=== PATIENT | male | born 1960 | race Caucasian/White ===

== ENCOUNTER → 2018-08-11 | Outpatient (REF) | payer MEDICARE ==
[~2018-08-11] MED LIST: B-12100020 PO; CITA20TA6 PO; FERR325T3 PO; FOLI1TAB11 PO; FOLI800C PO; MULTCAP PO; PANT40TA3 PO; PHEN50CH4 PO; VITA100T12 PO
== END ==
LOC: M LAB LCGH 15:47
PROVIDERS: ATTEND Surgery
DX: C16.9 Malignant neoplasm of stomach, unspecified (principal); D50.9 Iron deficiency anemia, unspecified; R63.4 Abnormal weight loss; K62.5 Hemorrhage of anus and rectum

== ENCOUNTER → 2018-08-25 | Outpatient (CLI) | payer MEDICARE ==
[~2018-08-25] MED LIST changes: -B-12100020 PO; -FOLI1TAB11 PO; +GASTROGRAFIN SOLUTION 30ML (Q9963) As Ordered ONE; +ISOVUE-370 76% 100ML VIAL (Q9967) As Ordered ONE; +LIDOCAINE 1% MDV 20ML VIAL As Ordered ONE
--- NOTE | 2018-08-25 13:06 | REP ---
CT of the chest with IV contrast for initial staging of gastric adenocarcinoma: The patient indicates that he and additionally has a left nephrectomy and has had a colon resection. There are no comparison studies. There is a soft tissue mass in the posterior mediastinum anterior to the approximate T9-T10 vertebral bodies along the right lateral margin of the distal esophagus measuring 2.7 cm transversely by 4.0 cm craniocaudad. This could represent an enlarged node, or mass of other etiology. No other mediastinal mass or adenopathy are identified. However, I suspect there is circumferential wall thickening of the distal esophagus. There is no hilar adenopathy. There is no axillary adenopathy. There is a minimal volume of subcutaneous fat. There are no lung masses or nodules. There are no infiltrates or pleural effusions. The thoracic aorta is unremarkable. 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 Cardiac size is normal. There is no pericardial effusion. There are no lytic, blastic or destructive skeletal changes. Impression: There is a mass in the posterior inferior mediastinum as described. This could represent an enlarged node or mass of other etiology. I suspect there is circumferential wall thickening of the distal esophagus. No lung nodules or masses are identified. There are no infiltrates or pleural effusions. Electronically Signed by Jason Buckley MD 08/25/2018 12:58 P
--- NOTE | 2018-08-25 13:55 | REP ---
CT ABDOMEN AND PELVIS WITH IV AND ORAL CONTRAST: HISTORY: Gastric adenocarcinoma. Initial staging. The patient reports a previous partial gastrectomy, colon resection due to Crohn disease, as well as post-traumatic left nephrectomy and splenectomy. There are no comparison studies available. CT CONTRAST DOSE: 100 mL of intravenous Isovue 370. CT FINDINGS: There is considerable spray artifact in the left upper quadrant from surgical clips post splenectomy. There does appear to be some mural thickening of the distal esophagus and heterogeneous density is seen in the upper stomach. There appears to have been a gastrojejunostomy. The known tumor in the stomach is difficult to characterize by CT. No pancreatic lesion is observed. The gallbladder is unremarkable. There is a suture line in the right mid abdomen along the pancreatic head. No gallbladder abnormality is seen. No focal liver lesion is appreciated. There is mild fatty infiltration of the liver. No adrenal lesion is seen on either side. The right kidney enhances normally and appears morphologically intact. No periaortic adenopathy is appreciated. Distal small bowel and visualized large bowel loops are unremarkable. There is moderate colonic stool in the rectum. Dystrophic calcifications are seen in the prostate. Urinary bladder is intact. As reported on the chest CT, there is an oval-shaped low density lesion in the retrocrural soft tissues adjacent to the distal esophagus and to its right side. This measures 3.7 cm craniocaudal x 2.6 cm in medial to lateral x 2.4 cm right to left. This could be an esophageal duplication cyst, conceivably a pericardial cyst, or low density adenopathy. I would favor a cyst. IMPRESSION: Extensive postoperative changes in this patient who is status post splenectomy, left nephrectomy, and gastrojejunostomy. No definite adenopathy is seen. There is a low-density possibly cystic lesion to the right of the distal esophagus just above the diaphragmatic hiatus. Electronically Signed by Jorge Mujica MD 08/25/2018 05:19 P
== END ==
LOC: M RAD 08:21
PROVIDERS: ATTEND Internal Medicine Medical Oncology
DX: C16.9 Malignant neoplasm of stomach, unspecified (principal); Z90.81 Acquired absence of spleen; Z90.5 Acquired absence of kidney; Z93.4 Other artificial openings of gastrointestinal tract status
CPT/HCPCS: 71260; 74177; Q9963; Q9967

== ENCOUNTER 2018-08-28 08:43 | Outpatient (RCR) | payer MEDICARE ==
[2018-08-20 15:12] VITALS: BP 84/61
[2018-08-20 16:12] LABS: HEMATOCRIT 26.6 % (42.0-52.0); HEMOGLOBIN 8.1 g/dl (13.5-17.5); LYMPH % 18.6 % (24.0-44.0); MEAN CORPUSCULAR HEMOGLOBIN 25.3 pg (27.0-33.0); MEAN CORPUSCULAR HGB CONC 30.5 g/dl (32.0-36.5); MEAN CORPUSCULAR VOLUME 83.2 fl (80.0-96.0); NEUTROPHILS # 7.2 10^3/uL (1.8-7.7); NEUTROPHILS % 76.5 % (36.0-66.0); RED BLOOD COUNT 3.2 10^6/uL (4.30-6.10); WHITE BLOOD COUNT 9.4 10^3/uL (4.0-10.0)
--- NOTE | 2018-08-20 17:23 | MEDONC ---
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 HISTORY OF PRESENT ILLNESS: Steve Sanz is a 58-year-old man with a personal history of Crohn disease status post hospitalization for SBO requiring colectomy in June 2017, and recently admitted for progressive anemia, fatigue and weight loss, found on upper endoscopy to have diffuse gastric body involvement with adenocarcinoma, HER2/radha negative, signet ring morphology present involving primarily the lesser curvature with scope unable to pass beyond the mass. He was referred for surgical evaluation [place] with the surgeon felt he should have medical oncology evaluation initially and is now referred by Dr. Monzon for medical oncology recommendations. 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 As part of this he underwent splenectomy, left nephrectomy, multiple skeletal repairs and has seizure disorder but no recent seizures. He is closely cared for by a sister Christie Barksdale, cell number [phone], and brother Maikel Sanz, cell [phone], though he lives by himself. He smoked remotely, but denies alcohol. FAMILY HISTORY: Notable for colon cancer in mother who at age 62, lung cancer in father who was a smoker, and breast cancer in a sister in her 50s. In July Steve was hospitalized due to severe anemia. He received iron and red blood cell transfusions. On 08/11/2018 he underwent upper and lower endoscopy with Liborio Miller MD. Upper endoscopy revealed moderate to poorly differentiated adenocarcinoma with signet ring features, HER2/radha negative (1+) diffusely involving gastric body, mostly along the lesser curvature, with the scope unable to pass the tumor. Colonoscopy was unremarkable. Recently he developed thrombocytosis and iron deficiency leading up to these events. Steve acknowledges a significant weight loss in the last year. He is appetite is decreased. He is having occasional vomiting. He threw up blood last week. He is eating increasingly softer foods and not able to tolerate regular solids but is not a great historian. His sister and brother pitch in. He denies pain but expressed pain and tenderness during epigastric exam. PAST MEDICAL HISTORY: Crohn disease not on active treatment, anemia, anxiety, status post splenectomy, hyperlipidemia, iron deficiency anemia, seizure disorder thrombocytosis, urethral calculus. PAST SURGICAL HISTORY: Colectomy for SBO June 2017. Splenectomy 1974, left nephrectomy 1974, skull rib and left femur fractures with left femur ORIF 1974. ALLERGIES: Shrimp and red dye. MEDICATIONS: Citalopram 20 mg daily, cyanocobalamin 100 mcg daily, ferrous sulfate 325 mg daily, folic acid 0.8 mg daily, multivitamin daily, pantoprazole 40 mg, phenytoin 50 mg daily. SOCIAL HISTORY: The patient reports remote history of smoking and not taking in alcohol but other past medical records indicate social alcohol intake. He lives alone. Some was supervised by a brother Maikel and sister Christie noted above. 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 FAMILY HISTORY: Mother age 62 of colon cancer diagnosed at her at age of 60; father of lung cancer was a heavy smoker; sister living, diagnosed with breast cancer age 55. REVIEW OF SYSTEMS: 12 system written review positive for dizziness once in awhile, throwing up blood last week, fatigue, increased fatigue, loss of appetite and weight loss lately 20 pounds in the last year, prior history of alcohol intake now rare. PHYSICAL EXAMINATION: Weight 47 kg, height 5'1/4", BMI 20, the patient is a casually dressed, well-groomed middle-aged gentleman, makes good eye contact, cheerful, poor historian, accompanied by brother and sister easily gets on examining table for exam. Temperature 96.7, blood pressure 84/61, heart rate 75, respiratory 16, O2 sat 98%. Respiratory: Clear lungs to auscultation bilaterally anteriorly and posteriorly. No wheezes, rales or rhonchi. Cardiac: S1-S2 regular rate and rhythm. No murmur. No gallop. Abdomen: Some epigastric tenderness without palpable discrete mass. No hepatomegaly or splenomegaly (asplenic). No lower abdominal tenderness. No rebound tenderness. Extremities: No edema. Lymph nodes no palpable submandibular, cervical, supraclavicular or axillary adenopathy bilaterally. LABORATORY DATA: WBC 9.4, hemoglobin 8.1, hematocrit 26. MCV 83, platelets 885. IMPRESSION: 1. Steve Sanz is a 58-year-old man with newly diagnosed moderate to poorly differentiated gastric adenocarcinoma with signet ring features diffusely involving gastric body with partial outlet obstruction. 2. Personal history of Crohn disease. 3. Family history of colon cancer and breast cancer in first-degree relatives. I reviewed with Steve and his family standard workup of newly diagnosed gastric cancer. A critical issue is determining whether it is localized disease, resectable, and/or metastatic. First, CTs of chest, abdomen and pelvis. If there appear to be no distant metastases or surgically disqualifying bulky adenopathy would proceed to an endoscopic ultrasound and potentially PET. Though not of immediate import, pursuing genetic counseling and testing which may make sense with his family. Does not need immediate criteria for hereditary diffuse gastric cancer based on his age at diagnosis but notably, with breast cancer and colon cancer in first-degree relatives certainly a raises a question of possible presence of CDH1 gene or a variant or other GI malignancy germ line mutation, for example Salinas syndrome. I reviewed with Steve and his sister and brother that locally advanced gastric cancer and metastatic gastric cancer carry a very poor prognosis and can involve fairly aggressive treatment. PLAN: 1. CT chest and pelvis with by mouth and IV contrast as part of initial staging. 2. Return to clinic after CTs; If no evidence of distant disease or bulky distant adenopathy proceed to EUS for staging and consider PET. 3. Consider genetic counseling and testing for Salinas syndrome, and HBGC (CDH1 gene). 4. If metastatic disease present obtain MMR and PD-L1 status on current tissue. All of the patient's and his family's questions were answered today to their apparent satisfaction. I emphasized the potentially involved nature of staging gastric cancer, initial treatment. I also focused on nutrition. Emphasizing importance of soft high calorie food intake including boost and thick liquid diet to maintain weight. Steve was a very difficult IV stick today and may require MediPort access for treatment. If today's creatinine comes back elevated due to a prerenal azotemia. Will recommend significant IV hydration prior to any scans. Electronically Signed by Perla Carson MD 08/21/2018 03:23 P DD: Perla Carson MD 08/20/2018 04:19 P DT: [email or web address] 08/20/2018 04:51 P CC: Kenny Monzon MD
[2018-08-21 08:58] LABS: INR 1.15; PARTIAL THROMBOPLASTIN TIME 35.8 SECONDS (25.4-37.6); PROTHROMBIN TIME 14.9 SECONDS (12.1-14.4)
[~2018-08-28] VITALS: Ht 153 cm; Wt 47.2 kg
[~2018-08-28 08:43] MED LIST changes: -GASTROGRAFIN SOLUTION 30ML (Q9963) As Ordered ONE; -ISOVUE-370 76% 100ML VIAL (Q9967) As Ordered ONE; -LIDOCAINE 1% MDV 20ML VIAL As Ordered ONE
[2018-08-28 08:51] VITALS: BP 87/63
--- NOTE | 2018-08-29 14:18 | MEDONC ---
MEDICAL ONCOLOGY FOLLOWUP DATE OF SERVICE: 08/28/2018 DIAGNOSIS: 1. Moderately to poorly differentiated gastric adenocarcinoma, morphologically diffuse, signet ring morphology, HER2 negative diagnosed June 2017 on upper endoscopy during admission for severe anemia in the setting of major weight loss. Staging workup underway. 2. Family history of colon and breast cancer in first-degree relatives; personal history of Crohn's disease. INTERVAL HISTORY: CT chest, abdomen and pelvis revealed a soft tissue mass in the posterior mediastinum, anterior to T9-T10 vertebral bodies, along the right lateral margin of the distal esophagus, measuring 2.7 x 4.0 cm. It was thought either to be an enlarged node, mass or other etiology. No other mediastinal mass or adenopathy was seen in the chest and on abdomen pelvis CT, mural thickening in the distal esophagus and heterogeneous density in the upper stomach were seen. The known tumor in the stomach was difficult to characterize by CT. No pancreatic, gallbladder lesions seen. No focal liver lesions seen. No periaortic or regional adenopathy seen. The oval shaped density noted in chest CT in the retrocrural soft tissues adjacent to the distal esophagus measured 3.7 x 2.6 cm, which was thought possibly to be an esophageal duplication cyst, pericardial cyst, or low density adenopathy with radiologist favoring a cyst. 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 Conversely, this could be a lymph node, which would likely make this patient not a surgical candidate. I explained the nuances of this issue with Steve and his family. To recap, Steve has significant cognitive limitations due to his prior traumatic injury with intellectual limitation. I recommended PET CT and endoscopic ultrasound. Her EUS cannot be done locally, will have to refer to [place]. The family accepts this plan. I spent a bit of time explaining the reason for this careful staging. A curative gastric cancer surgery can be significant with a great deal of morbidity, but as a first step, whether or not it is even possible should be established for staging. Steve is an otherwise fit 58-year-old man. His brother and sister act as his surrogate decision makers. IMPRESSION: Gastric adenocarcinoma with diffuse morphology, signet ring morphology, HER2 negative, MMR and PD-L1 status unknown diffusely involving gastric body in an otherwise well 58-year-old man with major weight loss over several months. CT abdomen and pelvis without clear evidence of regional adenopathy, though there is a soft tissue possibly cystic, possibly rosario mass measuring up to 4 cm in the distal right paraesophageal area prevertebrally that warrants further investigation. ECOG performance status 0. Intellectual/cognitive limitations due to old head injury. Finally, a complex traumatic surgical history which involves splenectomy, partial nephrectomy, multiple skeletal injuries may also be the cause of an anomalous soft tissue density in the distal esophagus. PET could help sort this out. PLAN: 1. PET CT. 2. Referral to [facility] for endoscopic ultrasound as part of possible early stage gastric cancer staging. 3. Return to clinic after the two above. If surgery contemplated, Steve will need referral to a dedicated hepatobiliary surgeon likely in [place]. Electronically Signed by Perla Carson MD 08/31/2018 03:59 P DD: Perla Carson MD 08/28/2018 01:13 P DT: [email or web address] 08/29/2018 02:00 P CC: Kenny Monzon MD
== END 2018-08-28 09:56 | disposition home or self-care (01) ==
LOC: M ONCM 08:43
PROVIDERS: ATTEND Internal Medicine Medical Oncology
DX: C16.9 Malignant neoplasm of stomach, unspecified (principal); K50.90 Crohn's disease, unspecified, without complications; D50.9 Iron deficiency anemia, unspecified; R63.4 Abnormal weight loss; R56.9 Unspecified convulsions; R41.89 Other symptoms and signs involving cognitive functions and awareness; Z87.891 Personal history of nicotine dependence; Z79.899 Other long term (current) drug therapy
CPT/HCPCS: 36415; 85027; 85610; 85730; G0463

== ENCOUNTER 2018-09-08 08:59 | Emergency (ER) | payer MEDICARE ==
[~2018-09-08] VITALS: Ht 160 cm; Wt 45.1 kg
[2018-09-08] MEDS ORDERED: NS 1,000 ML IV ONE ×2 (10:00→11:15)
[2018-09-08] MEDS ORDERED: FOLI1TAB11 PO (10:24)
[2018-09-08] MEDS ORDERED: PHEN50CH4 PO (10:24)
[2018-09-08] MEDS ORDERED: B-12100020 PO (10:24)
[2018-09-08 10:36] LABS: BASO % 0.2 % (0.0-1.0); EOS % 0.1 % (0.0-3.0); HEMATOCRIT 21.9 % (42.0-52.0); LYMPH # 0.9 10^3/uL (1.5-4.5); LYMPH % 10.8 % (24.0-44.0); MEAN CORPUSCULAR HEMOGLOBIN 25.1 pg (27.0-33.0); MEAN CORPUSCULAR HGB CONC 29.2 g/dl (32.0-36.5); MEAN CORPUSCULAR VOLUME 85.9 fl (80.0-96.0); MONO # 0.7 10^3/uL (0.0-0.8); MONO % 8.5 % (0.0-5.0); NEUTROPHILS # 6.5 10^3/uL (1.8-7.7); NEUTROPHILS % 79.8 % (36.0-66.0); PLATELET COUNT, AUTOMATED 471 10^3/uL (150-450); RED BLOOD COUNT 2.55 10^6/uL (4.30-6.10); WHITE BLOOD COUNT 8.2 10^3/uL (4.0-10.0)
[2018-09-08 10:38] LABS: HEMOGLOBIN 6.4 g/dl (13.5-17.5)
[2018-09-08] MEDS ORDERED: PANTOPRAZOLE 40MG INJ (PROTONIX) (C9113) IV ONE (10:45)
[2018-09-08 10:46] LABS: INR 1.11; PROTHROMBIN TIME 14.5 SECONDS (12.1-14.4)
[2018-09-08 10:47] LABS: PARTIAL THROMBOPLASTIN TIME 31.3 SECONDS (25.4-37.6)
--- NOTE | 2018-09-08 10:55 | REP ---
Chest two views HISTORY: Dizziness Comparison: None The lungs are clear. The heart is normal in size. The pulmonary vasculature is normal in appearance. The bony structure is intact. IMPRESSION: No acute disease. Electronically Signed by Liborio Nicholas MD 09/08/2018 10:46 A
[2018-09-08 11:06] LABS: ALBUMIN 1.2 GM/DL (3.2-5.2); ALT/SGPT 23 U/L (12-78); BILIRUBIN,DIRECT < 0.1 MG/DL (0.0-0.2); BILIRUBIN,TOTAL 0.1 MG/DL (0.2-1.0); BLOOD UREA NITROGEN 17 MG/DL (7-18); CALCIUM LEVEL 7.1 MG/DL (8.8-10.2); CARBON DIOXIDE LEVEL 24 MEQ/L (21-32); CHLORIDE LEVEL 105 MEQ/L (98-107); CK-MB VALUE MASS < 1.0 NG/ML (<3.6); CPK CREATINE PHOSPHOKINASE 34 U/L (39-308); CREATININE FOR GFR 0.43 MG/DL (0.70-1.30); GLOMERULAR FILTRATION RATE > 60.0 (>49); GLUCOSE, FASTING 84 MG/DL (70-100); LIPASE 99 U/L (73-393); MB/CK RELATIVE INDEX 2.94 (< OR =4); SODIUM LEVEL 136 MEQ/L (136-145); TOTAL PROTEIN 4.2 GM/DL (6.4-8.2); TROPONIN I < 0.02 NG/ML (< 0.10)
[2018-09-08] MEDS ORDERED: ISOVUE-370 76% 100ML VIAL (Q9967) As Ordered ONE (11:43)
[2018-09-08 11:50] LABS: PHENYTOIN (DILANTIN) 4.8 UG/ML (10.0-20.0)
[2018-09-08 13:26] LABS: CK-MB VALUE MASS < 1.0 NG/ML (<3.6); CPK CREATINE PHOSPHOKINASE 38 U/L (39-308); MB/CK RELATIVE INDEX 2.63 (< OR =4); TROPONIN I < 0.02 NG/ML (< 0.10)
--- NOTE | 2018-09-08 14:26 | REP ---
CT ABDOMEN AND PELVIS WITHOUT CONTRAST: CT abdomen and pelvis is performed without oral or IV contrast. Sagittal and coronal reconstruction images are performed. Comparison is made with prior CT with oral and IV contrast 08/25/2018. The visualized lung bases demonstrate interstitial fibrotic change inferiorly on the left. The liver is grossly unremarkable and unchanged. The patient has had a prior splenectomy, left nephrectomy as well as a gastrojejunostomy. Adrenals are grossly unremarkable. The pancreas and right kidney are grossly unremarkable and unchanged. Multiple metallic clips and surgical sutures are seen in the upper abdomen. Rounded area of fluid along the right distal esophagus is unchanged. There appears to be thickening of the gastroesophageal junction and of portions of the stomach. There is no free air, significant free fluid or evidence of bowel obstruction. The urinary bladder is grossly unremarkable. IMPRESSION: No gross acute change when compared to prior CT 08/25/2018 as discussed above. Electronically Signed by Jason Skaggs MD 09/09/2018 04:42 P
[2018-09-08] MEDS ORDERED: PANTOPRAZOLE SODIUM 40 MG in D5W 50 ML IV SCH (16:45)
[2018-09-08] MEDS ORDERED: NS 1,000 ML IV SCH (16:52)
[2018-09-08 18:45] VITALS: BP 111/61
--- NOTE | 2018-09-09 05:48 | ECGEPIP ---
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
== END 2018-09-08 18:49 | disposition short-term general hospital (02) ==
LOC: M ED 08:59
DX: K92.2 Gastrointestinal hemorrhage, unspecified (principal); D64.9 Anemia, unspecified; I95.9 Hypotension, unspecified; C16.9 Malignant neoplasm of stomach, unspecified; R56.9 Unspecified convulsions; Z87.820 Personal history of traumatic brain injury; Z87.828 Personal history of other (healed) physical injury and trauma; Z90.3 Acquired absence of stomach [part of]; Z90.81 Acquired absence of spleen; Z91.013 Allergy to seafood; Z91.048 Other nonmedicinal substance allergy status; Z79.899 Other long term (current) drug therapy
CPT/HCPCS: 36415; 36430; 71046; 74177; 80048; 80076; 80185; 82550; 82553; 83605; 83690; 84484; 85025; 85610; 85730; 86850; 86900; 86901; 86920; 87040; 93005; 93041; 96361; 96374; 99285; C9113; P9016; Q9967